=== PATIENT | female | born 1980 | race Caucasian/White ===

== ENCOUNTER 2019-06-12 03:28 | Inpatient (IN) | payer BC, OTHER ==
--- NOTE | 2019-06-12 03:38 | ED ---
HPI Chest Pain - HPI Summary HPI Summary: 38 year old F presenting to [facility] complains of non-radiating mid sternal chest pain described as burning/pulsating rated 7/10 in severity since 03:00 yesterday. 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 PMHx: Meniere's disease. Patient states she usually gets 1-2 episodes of Meniere's each year, an episode lasting 1-2 hours, for which she takes meclizine. Patient states she is having an episode of her Meniere's, reports dizziness since 6 days ago and photophobia. Patient states that 6 weeks ago, she suddenly started feeling some disequilibrium. When she got home after this started, she collapsed to floor, couldn't stand, lost vision for 10-15 minutes. With the help of her mother, patient was able to get to bed. Patient stayed in bed for next several days, needed wheelchair help going to the bathroom. She states she thought this would pass, but ever since, she hasn't been able to see well. Patient states she went to her primary care provider who increased her meclizine dose. She reports problems with vision, balance, coordination, intermittent vomiting. Over last few days, she developed left abdominal pain and chest pain. Patient denies shortness of breath and headache. Symptoms aggravated by nothing. Symptoms alleviated by nothing. 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 Surgical hx: gastric bypass in 2003. Does not get menstrual periods because she has IUD. - History of Current Complaint Hx Obtained From: Patient Onset/Duration: Started Hours Ago, Still Present Timing: Constant Current Severity: Moderate Pain Intensity: 7 Pain Scale Used: 0-10 Numeric Chest Pain Location: Mid Sternal Character: Burning, Other: - pulsating Aggravating Factor(s): Nothing Alleviating Factor(s): Nothing Associated Signs and Symptoms: Positive: Negative - shortness of breath, headache, Other: - nausea, hematemesis, dizziness, photophobia, lower abdominal pain, pain in her LLQ - Allergy/Home Medications Allergies/Adverse Reactions: Allergies Allergy/AdvReac Type Severity Reaction Status Date / Time azithromycin Allergy Hives Verified 06/12/19 03:39 Penicillins Allergy Hives Verified 06/12/19 03:39 sulfamethoxazole Allergy Hives Verified 06/12/19 03:39 [From Bactrim] trimethoprim [From Bactrim] Allergy Hives Verified 06/12/19 03:39 Home Medications: Home Medications Ergocalciferol CAP* [Drisdol CAP*] 1 cap PO SEE INSTRUCTIONS 06/12/19 [History Confirmed 06/12/19] Pantoprazole Sodium 40 mg PO BID 06/12/19 [History Confirmed 06/12/19] PMH/Surg Hx/FS Hx/Imm Hx EENT History: Reports: Other - Meniere's disease - Surgical History Surgery Procedure, Year, and Place: LUE repair. breast reduction with implant. WPW with ablation. gastric bypass 2003 Infectious Disease History: Denies: Traveled Outside the [place] in Last 30 Days - Family History Known Family History: Positive: Cardiac Disease - brother had KS, Other - mother had stroke - Social History Alcohol Use: None Substance Use Type: Reports: None Smoking Status (MU): Never Smoked Tobacco Review of Systems Positive: Photophobia Positive: Chest Pain Negative: Shortness Of Breath Positive: Abdominal Pain, Vomiting, Nausea, Other - hematemesis Neurological: Other - Dizziness, problems with balance and coordination Negative: Headache All Other Systems Reviewed And Are Negative: Yes Physical Exam - Summary Physical Exam Summary: Appearance: Well-appearing, Well-nourished, lying in bed comfortably Skin: Warm, dry, no obvious rash Eyes: sclera anicteric, no conjunctival pallor ENT: mucous membranes moist, pharynx appears normal Neck: Supple, nontender Respiratory: Clear to auscultation, no signs of respiratory distress Cardiovascular: Normal S1, S2. No murmurs. Normal distal pulses in tibial and radial bilaterally. Abdomen: Soft, nontender, normal active bowel sounds present Musculoskeletal: Normal, Strength/ROM Intact Neurological: A&Ox3, awake and alert, mentation is normal, speech is fluent and appropriate, Level of consciousness nml. The patient is alert and oriented. Cranial nerves are grossly intact. Gaze is conjugate and there is pronounced nystagmus on lateral gaze in both directions which perhaps has a rotational component. The patient is able to read by ID badge at 1 ft distance. There are no gross sensory abnormalities to light touch. There is mild truncal and marked fine motor ataxia on finger to nose testing. Gait is not tested as pt was unable to get beyond a sitting position. Psychiatric: affect is normal, does not appear anxious or depressed Triage Information Reviewed: Yes Vital Signs Reviewed: Yes Procedures - Sedation Patient Received Moderate/Deep Sedation with Procedure: No Diagnostics - Laboratory Result Diagrams: 06/13/19 05:39 06/15/19 04:02 Lab Statement: Any lab studies that have been ordered have been reviewed, and results considered in the medical decision making process. - Radiology CXR Radiology Interpretation Completed By: ED Physician Summary of Radiographic Findings: No acute process. Pending official report - CT Brain CT Interpretation Completed By: Radiologist Summary of CT Findings: No acute intracranial hemorrhage or infarct. ED physician has reviewed this report. Abd/Pel CT Interpretation Completed By: Radiologist Summary of CT Findings: 1. Status post gastric surgery. 2. IUD [address]. ED physician has reviewed this report. - EKG 0331 Cardiac Rate: NL - 87 BPM EKG Rhythm: Sinus Rhythm Summary of EKG Findings: NSR at 87 BPM, P waves, QRS complex, and T waves are within normal limits, T waves and intervals are normal, no ischemic changes. This is a normal EKG. Chest Pain Course/Dx - Course Course Of Treatment: 38 year old F complains of non-radiating mid sternal chest pain described as burning/pulsating rated 7/10 in severity since 15:00 yesterday. 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 Patient states she is having an episode of her Meniere's, reports dizziness since 6 days ago and photophobia. 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 Bloodwork results with no significant abnormalities except for WBC 3.4, Hgb 11.5, RDW 19, MPV 7.0, INR 1.19, potassium 3.3, CO2 18, BUN/creatinine 7.5, glucose 124, total bilirubin 2.50, AST 203, ALT 734, alkaline phosphatase 173. An EKG shows NSR at 87 BPM, P waves , QRS complex, and T waves are within normal limits, T waves and intervals are normal, no ischemic changes. This is a normal EKG. CT Brain shows, per radiologist: No acute intracranial hemorrhage or infarct. CT Abd/Pel shows, per radiologist: 1. Status post gastric surgery. 2. IUD in place. CXR shows No acute process. In the ED course, the patient was given normal saline fluids 1 L IV, Compazine 10 mg IV, and multi vitamins. Spoke with Dr. Perdomo, hospitalist, who agrees to admit patient. - Diagnoses Provider Diagnoses: Ataxia - Provider Notifications Discussed Care Of Patient With: Rowena Perdomo Time Discussed With Above Provider: 05:57 Instructed by Provider To: Other - Dr. Perdomo, hospitalist, agrees to admit patient. Discharge ED - Sign-Out/Discharge Documenting (check all that apply): Patient Departure - Discharge Plan Condition: Fair Disposition: ADMITTED TO [facility] - Billing Disposition and Condition Condition: FAIR Disposition: Admitted to [facility] - Attestation Statements Document Initiated by Scribe: Yes Documenting Scribe: Mita Salcedo Provider For Whom Shaquille is Documenting (Include Credential): Mata Mendez MD Scribe Attestation: Mita Mcbride, scribed for Mata Mendez MD on 06/15/19 at 1928. Scribe Documentation Reviewed: Yes Provider Attestation: The documentation as recorded by the Mita nicolas accurately reflects the service I personally performed and the decisions made by Mata bradford MD Status of Scribe Document: Viewed
[2019-06-12] MEDS ORDERED: Thiamine IV 100 MG, Folic Acid IV* 1 MG, Multiple Vitamin IV ADULT* 10 ML in NS 0.9% 10... IV ONE (04:23)
[2019-06-12] MEDS ORDERED: PROCHLORPERAZINE INJ 5 MG/ML 2 ML VIAL IV PRN (04:24)
[2019-06-12] MEDS ORDERED: NS 0.9% 1000 ML** 2,000 ML IV ONE (04:25)
[2019-06-12 05:09] LABS: INR 1.19 (0.82-1.09)
[2019-06-12 05:19] LABS: AST 203 U/L (13-39); Albumin 3.8 g/dL (3.2-5.2); Albumin/Globulin Ratio 1.1 (1-3); Alkaline Phosphatase 173 U/L (34-104); Anion Gap 9 mmol/L (2-11); BUN/Creatinine Ratio 7.5 (8-20); Blood Urea Nitrogen 7 mg/dL (6-24); CO2 Carbon Dioxide 18 mmol/L (22-32); Calcium 9.4 mg/dL (8.6-10.3); Chloride 111 mmol/L (101-111); EGFR African American 81.2 (>60); EGFR Non-African American 67.1 (>60); Globulin 3.5 g/dL (2-4); Glucose 124 mg/dL (70-100); Potassium 3.3 mmol/L (3.5-5.0); Sodium 138 mmol/L (135-145); Total Protein 7.3 g/dL (6.4-8.9)
[2019-06-12] MEDS ORDERED: Iohexol 300* (CONTRAST) 10 ML SDV IV ONE (05:28)
[2019-06-12 05:39] LABS: ABS Lymphocytes 1.1 10^3/ul (1.0-4.8); ABS Monocytes 0.3 10^3/ul (0-0.8); Eosinophil % 0.9 %; Hematocrit 35 % (35-47); Hemoglobin 11.5 g/dL (12.0-16.0); Lymphocyte % 30.9 %; Mean Corpuscular HGB Conc 33 g/dL (31-36); Mean Corpuscular Hemoglobin 31 pg (27-31); Mean Corpuscular Volume 95 fL (80-97); Nucleated Red Blood Cells % 0.1; Platelet Count 251 10^3/uL (150-450); Red Blood Count 3.72 10^6 /uL (3.70-4.87); Red Cell Distribution Width 19 % (10-15); White Blood Count 3.4 10^3/uL (3.5-10.8)
[2019-06-12 05:50] LABS: ALT 734 U/L (7-52)
[2019-06-12 06:42] LABS: Urine Appearance Clear; Urine Bilirubin Negative (Negative); Urine Blood Negative (Negative); Urine Color Yellow; Urine Glucose Negative (Negative); Urine Ketones Negative (Negative); Urine Nitrite Negative (Negative); Urine Protein Negative (Negative); Urine Urobilinogen Negative (Negative)
[2019-06-12 06:57] LABS: Alcohol < 10 mg/dL (<10)
[2019-06-12 07:04] LABS: C Reactive Protein 5.02 mg/L (<8.01)
[2019-06-12 09:06] LABS: Erythrocyte Sed Rate 16 mm/Hr (0-19)
[2019-06-12] MEDS ORDERED: Gadoteridol* (CONTRAST) 279.3 MG/ML 10 ML IV ONE (10:08)
[2019-06-12 10:27] LABS: Magnesium 2.3 mg/dL (1.9-2.7)
[2019-06-12 10:40] LABS: Acetaminophen < 15 mcg/mL
[2019-06-12] MEDS ORDERED: Acetaminophen TAB* 325 MG PO PRN (10:43)
[2019-06-12] MEDS ORDERED: Ondansetron INJ* 2 MG/ML VIAL IV PRN (10:43)
[2019-06-12] MEDS ORDERED: Potassium Chloride* LIQUID 20 MEQ/15 ML UDC PO ONE (10:49)
[2019-06-12 11:27] LABS: Hepatitis B Surface Antigen Nonreactive (Nonreactive)
[2019-06-12 11:45] LABS: Hepatitis C Antibody Negative (Negative)
[2019-06-12] MEDS: NS 0.9% 1000 ML** 1,000 ML IV SCH (14:15)
--- NOTE | 2019-06-12 14:21 | HP ---
AMENDED REPORT NOW INCLUDES DESIGNATED COSIGNER ADMISSION HISTORY AND PHYSICAL: DATE OF ADMISSION: 06/12/19 PRIMARY CARE PHYSICIAN: Dr. Jared Lopez PROVIDER: Jenny Davalos NP ATTENDING PHYSICIAN: Dr. Greenfield * (DICTATED BY JENNY DAVALOS NP) OTHER PROVIDER: Include Dr. Lamar. CHIEF COMPLAINT: Fall and loss of speech, vision and sight. HISTORY OF PRESENT ILLNESS: This is a 38-year-old female with a past medical history significant for headaches, migraines, bipolar, Meniere's disease and Adriana- Parkinson-White, who since starting about 7-1/2 days ago experienced some intermittent palpitations with no accompanying shortness of breath or radiating pain. Six days ago, she was sent home from work and stating because she felt unwell. When she got home, changed into her pajamas, she promptly fell and lost her speech, vision, and slight which is typical for when she has her "Meniere's attacks." Her normal Meniere's episodes last about half a day, this has been lasting for the past 6 days. She feels that she is thinking unclearly and has been unable to walk steadily and has been using a wheelchair to get around at home, to get to the bathroom. Starting about 2 days ago, she reported intermittent burning retrosternal pain and nausea. Nothing made it better, nothing made it worse and this morning, she had had a prolonged episode of dry heaving that resulted at the end with a very small amount of bright red blood in her vomit and had been brining up just mucus. Denies any recent illness or drinking. She has been taking her medications as she is supposed to other than her Wellbutrin, which she occasionally forgets once every couple of weeks. The hospitalist were asked to evaluate the patient for admission. Here in the ED, the patient obtained a brain MRI, brain CT, chest x-ray, and abdominal and pelvis CT scan. The patient is drowsy though arousable to voice. Speech somewhat slurred, unable to keep eyes open during conversation, is alert and oriented x4. PAST MEDICAL HISTORY: Includes: 1. Meniere's disease. 2. Duybe-Murgycrul-Sqgxi with ablation. 3. ADD. 4. Depression. 5. Anxiety. 6. Headaches. 7. Migraines. 8. Bipolar. 9. GERD. PAST SURGICAL HISTORY: Includes: 1. Breast reduction with implants bilaterally. 2. Gastric bypass in 2003. 3. Left humerus fracture with ORIF. HOME MEDICATIONS: 1. Clonazepam 1 mg p.o. daily. 2. Promethazine 25 mg p.o. q.6 hours p.r.n. 3. Ergocalciferol 50,000 units weekly. 4. Dextroamphetamine 10 mg p.o. q.i.d. 5. Bupropion 150 mg p.o. daily. 6. Pantoprazole 40 mg p.o. b.i.d. 7. Lamotrigine 200 mg p.o. b.i.d. 8. Meclizine 25 mg p.o. b.i.d. ALLERGIES: Include AZITHROMYCIN, PENICILLIN, BACTRIM, LEVAQUIN, TOPAMAX, and ERYTHROMYCIN. FAMILY HISTORY: Brother had an NM. Mother had TIA and hypothyroidism. SOCIAL HISTORY: Denies any tobacco use or alcohol use or any recreational substances. 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 Is not , has no children and lives on the top floor of her grandmother's house. Her grandmother lives in the bottom level. REVIEW OF SYSTEMS: Negative for any fevers, anorexia, chest pain, edema. No coughing. No issues with bladder function. Is positive for nausea, vomiting, constipation, bilateral leg weakness. PHYSICAL EXAMINATION VITAL SIGNS: Temperature is 97.6 Fahrenheit, 85 pulse, 15 resp, 98% oxygen on room air, 120/73 blood pressure. HEENT: Conjunctivae pink and moist. Pupils equal, round, and reactive to light. Extraocular muscles intact. ENT: Smile symmetrical. Tongue midline. Oropharynx clear. Mucous membranes moist. LYMPHATICS: No cervical lymphadenopathy noted. RESPIRATORY: No accessory muscle use. Lung sounds diminished throughout bilaterally on room air. CARDIAC: S1, S2. Heart rate regular. No murmurs, rubs or gallops appreciated. 2+ positive pedal pulses. ABDOMEN: Soft. It is tender to the right upper quadrant, reporting crampy pain there and a dull ache to the left lower quadrant with hypoactive bowel sounds x4. MUSCULOSKELETAL: No clubbing or cyanosis noted. Able to move all extremities. NEUROLOGIC: Able to move all extremities. Sensation intact to light touch. No focal deficits appreciated. Hand impregnator electrolytic capacitors are equal. PSYCHIATRIC: Alert and oriented x3 though flatter affect noted. SKIN: No rashes or open areas appreciated. LAB DATA: Potassium 3.3, carbon dioxide 18, BUN and creatinine ratio 7.5, glucose 124, lactic acid 1.9, total bilirubin 2.50. AST 203, ALT 734, alkaline phosphatase is 173. Ammonia level 124. Vitamin B12 is over 1450. INR 1.19. White blood cell count 3.4, hemoglobin 11.5, RDW is 19. Tylenol toxicology under 15. Serum alcohol under 10. DIAGNOSTICS: Chest x-ray showed no acute cardiopulmonary process. Abdomen and pelvis CT showed that she is status post gastric surgery with a IUD in place. Liver, gallbladder, and pancreas unremarkable. No remarkable findings overall. Brain CT had no acute intracranial hemorrhage or infarct. EKG showed sinus rhythm. ASSESSMENT AND PLAN: My impression is that this is a 38-year-old female with a past medical history that is significant for headaches, Meniere's, bipolar, ADD , and Ktvnu-Zhyxnopkf-Vrttr who presented to emergency room on 06/12/19 for hepatic encephalopathy likely due to elevated Lamictal levels. Dr. Villarreal consulted. My plan is: 1. Hepatic encephalopathy. [place] to be likely due to excess Lamictal. Denies drinking or recent illness. Clear liquids until more alert. CBC and CMP in the a.m. GI spoke with Dr. Villarreal who felt this was likely due to excess lamictal. Tylenol and alcohol toxicology negative. Hepatitis panel negative. Awaiting results of Lamictal level. Lactulose 30 mL q.i.d to lower ammonia levels. Normal saline at 75ml/hr. Spoke with Dr. Paz and after consulting with patient he felt that she was suffering from a conversion disorder on top of a metabolic disturbance because her symptoms seem to occur when from her boyfriend. Dr. Longoria consulted, he feels she would benefit from an admission to the [facility] once medically stable. 2. Hypokalemia. 20 mEq of potassium x1. 3. Depression and anxiety. Continue bupropion. We will hold clonazepam. 4. Bipolar. Continue Lamictal. 5. Gastroesophageal reflux disease. Continue pantoprazole. 6. Code status is full code. 7. Deep venous thrombosis prophylaxis: SCDs. CONDITION: Guarded. DISPOSITION: Admit OBV. TIME SPENT: Time spent on the patient is about 60 minutes with more than half of it spent face to face. Case reviewed by my attending and they agree with plan of care. JENNY DAVALOS, HOOD FITTER [id number]/CPS #: [id number]
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
[2019-06-12 19:07] LABS: Albumin 3.4 g/dL (3.2-5.2); Albumin/Globulin Ratio 1.1 (1-3); BUN/Creatinine Ratio 4.5 (8-20); Calcium 8.3 mg/dL (8.6-10.3); EGFR African American 86.6 (>60); EGFR Non-African American 71.5 (>60); Potassium 3.4 mmol/L (3.5-5.0); Total Bilirubin 1.8 mg/dL (0.2-1.0); Total Protein 6.4 g/dL (6.4-8.9)
--- NOTE | 2019-06-12 20:20 | CONS ---
GASTROENTEROLOGY CONSULT: DATE OF CONSULT: 06/12/19 CONSULTING PHYSICIANS: Dr. Aleja Greenfield, Dr. Jared Lopez. REASON FOR CONSULTATION: Elevated liver function test in a woman with a history of anxiety, depression, bipolar disorder, on numerous meds, but also complaining of abdominal pain. HISTORY OF PRESENT ILLNESS: She was interviewed with her mother, although the history was confusing and rambling and poorly focused. The patient said that she has been having problems like this for a couple of years. Her mother said that she has been concerned about her and staying with her the last 6 days. Those differences were never really reconciled. The ER notes show she came in complaining of chest pain and indeed the patient points in the lower substernal area and says there was pain that radiated under the left breast. It did not go to the neck, shoulders, or back. There was some dry heaving. She blamed it all on constipation. Today in the hospital, she has had 2 large bowel movements and pronounces that things are better and she actually wanted to eat. In the emergency room, her mental status seemed foggy and off. She has been seen by Neurology, who notes inconsistencies in the exam, but certainly is a longstanding of anxiety. Other symptoms have been ascribed to Meniere disease.which neurology doubts. The final judgment on that is unclear. She does take Lamictal, started possibly 10 years ago by a psychiatrist in [place]. Bupropion was started 10 years ago. Clonazepam started she believes 1 year ago. Her mother supports these intervals. Phenergan she takes exceedingly rarely. In the emergency room, it was noted that her white count was low at 3.4; hemoglobin 11.5, slightly lower than her baseline of 12.2; and LFTs definitely changed, bilirubin 2.5, ALT 734, alkaline phosphatase 174, and ammonia 124. Acute hepatitis panel was negative. She denies taking acetaminophen at home, then switches to say she takes one very rarely. She was taking lots of Advil for various aches and pains, but says that some of her "enzymes were off" and she was advised by Dr. Lopez' nurse practitioner to stop taking the Advil. Those tests were done at [facility]. The labs available here do show a completely normal set of transaminases for values April 2016 through December 2018, though the alkaline phosphatase has been slightly up at times, 149 in April 2016 and 117 in October 2018 with 2 other values normal. PAST MEDICAL HISTORY: 1. Obesity. 2. Bipolar disorder. 3. Anxiety. 4. Depression. 5. Kiuwh-Vajskxvef-Kbwqw - no cardiac issues since ablation many years ago. 6. GERD - on longstanding PPI. 7. Gastric bypass - 2003. 8. Anemia - mild iron deficiency. MEDICATIONS: See history of present illness. FAMILY HISTORY: No history of liver disease. SOCIAL HISTORY: She lives down the street from her mother. 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 She denies alcohol abuse. REVIEW OF SYSTEMS: She denies any history of palpitations, syncope, exertional chest pain, hemoptysis, TB, pneumonia. There is no history of rash, fever, or itching. PHYSICAL EXAM: She is an obese woman, bright and interactive. She is a vague historian. HEENT exam is unremarkable. There is no overt icterus. She is afebrile. Blood pressure 132/72. Her skin is normal. She has no adenopathy. Her lungs are clear. Heart sounds are regular. Breast and pelvic exams deferred. The abdomen is obese, soft and nontender. There are no masses. The exam is limited. Rectal is deferred. Extremities show no edema. DIAGNOSTIC STUDIES/LAB DATA: CT scan - normal liver and biliary tree. IMPRESSION: A woman with anxiety, depression, and other psychiatric issues, who presents with a mixed picture of some chest pain, abdominal pain, constipation, and then on labs, leukopenia and elevated LFTs. Initially it seemed possible she might have drug-induced hepatotoxicity, but a fairly complete history supported by her mother who lives close by her does not reveal any new agents nor any particular tendency it seems for taking supplements. The patient's depression does not appear to be particularly out of control, and there is not a sense that she would have had an impetuous ingestion. The history of chest pain is intriguing and it is possible that a small gallstone could have transited contributing to a picture biochemically such as this. That possibility, however, would not explain the history obtained of having liver enzymes cause her primary office to make suggestions over the last few months. For the moment, withdrawing some of her medications and assessing her situation with serial labs seem most prudent. Certainly bupropion and clonazepam would be considered low risk for hepatotoxicity. [id number]/CPS #: [id number] [facility]
[2019-06-12] MEDS: Pantoprazole TAB * 40 MG TAB PO SCH (20:34)
[2019-06-12] MEDS: Meclizine TAB* 12.5 MG PO SCH (20:34)
[2019-06-12 20:58] LABS: INR 1.17 (0.82-1.09)
[2019-06-12] MEDS ORDERED: lamoTRIgine TAB(*) 100 MG PO SCH (21:00)
[2019-06-13] MEDS: NS 0.9% 1000 ML** 1,000 ML IV SCH (05:07)
[2019-06-13 05:52] LABS: ABS Basophils 0.1 10^3/ul (0-0.2); ABS Eosinophils 0.1 10^3/ul (0-0.6); ABS Lymphocytes 2.4 10^3/ul (1.0-4.8); ABS Monocytes 0.4 10^3/ul (0-0.8); ABS Neutrophils 2.1 10^3/ul (1.5-7.7); Eosinophil % 2.3 %; Hematocrit 31 % (35-47); Hemoglobin 10.2 g/dL (12.0-16.0); Lymphocyte % 47.7 %; Mean Corpuscular HGB Conc 32 g/dL (31-36); Mean Corpuscular Hemoglobin 31 pg (27-31); Mean Corpuscular Volume 96 fL (80-97); Mean Platelet Volume 7.3 fL (7.4-10.4); Nucleated Red Blood Cells % 0.2; Platelet Count 224 10^3/uL (150-450); Red Blood Count 3.28 10^6 /uL (3.70-4.87); Red Cell Distribution Width 19 % (10-15); White Blood Count 5.1 10^3/uL (3.5-10.8)
[2019-06-13 06:06] LABS: Albumin 2.9 g/dL (3.2-5.2); Albumin/Globulin Ratio 1.1 (1-3); Calcium 7.7 mg/dL (8.6-10.3); EGFR African American 104.1 (>60); Globulin 2.7 g/dL (2-4); Total Bilirubin 1.7 mg/dL (0.2-1.0); Total Protein 5.6 g/dL (6.4-8.9)
[2019-06-13 06:38] LABS: TSH (Thyroid Stimulating Horm) 2.67 mcIU/mL (0.34-5.60)
[2019-06-13 06:40] LABS: Free T4 0.95 ng/dL (0.61-1.12)
[2019-06-13] MEDS ORDERED: Potassium Chlor TAB* 20 MEQ TAB.ER PO ONE (07:56)
[2019-06-13] MEDS ORDERED: buPROPion SR TAB.SR* 150 MG PO SCH (09:00)
[2019-06-13] MEDS: Meclizine TAB* 12.5 MG PO SCH ×2 (09:57→20:45)
[2019-06-13] MEDS: Pantoprazole TAB * 40 MG TAB PO SCH ×2 (09:57→20:45)
--- NOTE | 2019-06-13 10:45 | PN ---
Subjective Date of Service: 06/13/19 Length of Stay: 1 Days Neurology is following for the reported history of Menier's disease and recent episodes of "drop attacks." Interval History: She feels well today. She denied any vertigo, headaches, or drop attacks, despite an even lower potassium level today. She denied any visual disturbance. She still has mild ptosis on the left. She denied fatigue or swallowing impairment. In regards to missing any of her mood stabilizing medications, she has not had any recent medication interruption. She has been adherent to both lamotrigine and Wellbutrin. She recalls missing a few doses of lamotrigine last year when she ran out. Once she restarted back on the full dose, she developed lightheadedness and visual disturbance. She denied any tremors or feeling of confusion. Labs: AST: 203 -> 105 ALT: 734 -> 442 Ammonia: 124 ->83 Review of Systems: Denied CP, SOB, or palpitations. Objective Active Medications: Acetaminophen (Tylenol Tab*) 650 mg PO Q4H PRN PRN Reason: MILD PAIN or TEMP > 100.4 Sodium Chloride (Ns 0.9% 1000 Ml) 1,000 mls @ 75 mls/hr IV PER RATE [facility] Last Admin: 06/13/19 05:07 Dose: 75 mls/hr Lactulose (Lactulose*) 30 ml PO QID [facility] Last Admin: 06/13/19 09:57 Dose: 30 ml Meclizine HCl (Antivert Tab*) 25 mg PO BID [facility] Last Admin: 06/13/19 09:57 Dose: 25 mg Ondansetron HCl (Zofran Inj*) 4 mg IV Q4H PRN PRN Reason: NAUSEA/VOMITING Pantoprazole Sodium (Protonix Tab*) 40 mg PO BID [facility] Last Admin: 06/13/19 09:57 Dose: 40 mg Prochlorperazine Edisylate (Compazine Inj*) 10 mg IV Q6H PRN PRN Reason: NAUSEA/VOMITING Last Admin: 06/12/19 06:13 Dose: 10 mg Vital Signs 06/12/19 06/12/19 06/12/19 10:59 11:00 11:21 Temperature Pulse Rate 81 84 Respiratory 19 Rate Blood Pressure (mmHg) O2 Sat by Pulse 99 99 Oximetry 06/12/19 06/12/1906/12/19 11:26 11:43 11:48 Temperature 97.9 F 97.9 F Pulse Rate 85 85 Respiratory 22 22 Rate Blood Pressure 129/76 129/76 (mmHg) O2 Sat by Pulse 100 100 Oximetry 06/12/19 06/12/19 06/12/19 12:30 15:15 19:15 Temperature 97.7 F 98.2 F 97.9 F Pulse Rate 86 96 92 Respiratory 19 19 24 Rate Blood Pressure 115/65 132/72 126/78 (mmHg) O2 Sat by Pulse 100 100 100 Oximetry 06/13/19 06/13/19 06/13/19 00:16 03:05 08:00 Temperature 98.3 F 97.9 F Pulse Rate 87 83 Respiratory 16 16 17 Rate Blood Pressure 109/71 118/68 (mmHg) O2 Sat by Pulse 97 99 Oximetry 06/13/19 08:53 Temperature 98.1 F Pulse Rate 79 Respiratory 17 Rate Blood Pressure 123/71 (mmHg) O2 Sat by Pulse 98 Oximetry Intake and Output Last 24 Hours 06/11/19 06/12/19 06/13/19 06/14/19 06:59 06:59 06:59 06:59 Intake Total 6441 Output Total 0 Balance 6441 Weight 192 lb 200 lb Intake: IV Fluids 3441 NS 441 Oral 3000 Output: Urine 0 Other: # Voids 1 Oxygen Devices in Use Now: None Neurology Exam: General: Well nourished, well developed, overweight female in no acute distress HEENT: Normocephelic/atraumatic, sclera anicteric, mucous membranes moist Neck: Supple Extremities: No clubbing, cyanosis, or edema Neurological Findings: Awake, alert, and oriented to person, place, and time. Speech: fluent without dysarthria, repetition intact Cranial Nerve: PERRL, EOM intact, VFF, no nystagmus, face symmetric bilaterally. Mild ptosis on the left (chronic). Result Diagrams: 06/13/19 05:39 06/13/19 05:39 Assessment/Plan Ms. Radha Mccoy is a 38-year-old female with reported history of ADHD, bipolar disorder, and Menier's disease who presented with increase episodes of "drop attacks," inability to ambulate for a few minutes, and vertigo. The symptoms have resolved. She walked without any issues yesterday. She feels well today with no complaints. She was incidentally found to have transaminitis and hyperammonemia. 1. Drop attacks associated with vertigo- - I suspect her episodic vertigo and headaches are related to vestibular migraine. I don't think she has Menier's disease. - The reported drop attacks in the setting of acute stressors is likely functional. Hypokalemia periodic paralysis is unlikely the diagnosis here since she is asymptomatic today in spite of a lower potassium level compared to yesterday. 2. Transaminitis and hyperammonemia- most likely drug induced. Please note that if lamotrigine is held for more than 3 days, we would have to retitrate her back up to a full therapeutic dose. I would recommend restarting lamotrigine to 200 mg nightly. Defer further recommendations to psychiatry. Liver function test should be done more frequent as an outpatient while slowly restarting some of her home medications. She is asymptomatic from the hyperammonemia standpoint. Depakote would not be a good choice in the future due to the recent history of hepatotoxicity. I will sign off but please contact me for any questions or concerns.
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
--- NOTE | 2019-06-13 15:53 | PN ---
Subjective Date of Service: 06/13/19 Interval History: Patient seen and examined. States she is feeling better overall. States she is having left sided abdominal pain, but none in RUQ. Denies fever or chills. No further events noted. Objective Active Medications: Acetaminophen (Tylenol Tab*) 650 mg PO Q4H PRN PRN Reason: MILD PAIN or TEMP > 100.4 Sodium Chloride (Ns 0.9% 1000 Ml) 1,000 mls @ 75 mls/hr IV PER RATE [facility] Last Admin: 06/13/19 05:07 Dose: 75 mls/hr Lactulose (Lactulose*) 30 ml PO QID [facility] Last Admin: 06/13/19 13:19 Dose: 30 ml Meclizine HCl (Antivert Tab*) 25 mg PO BID [facility] Last Admin: 06/13/19 09:57 Dose: 25 mg Ondansetron HCl (Zofran Inj*) 4 mg IV Q4H PRN PRN Reason: NAUSEA/VOMITING Pantoprazole Sodium (Protonix Tab*) 40 mg PO BID [facility] Last Admin: 06/13/19 09:57 Dose: 40 mg Prochlorperazine Edisylate (Compazine Inj*) 10 mg IV Q6H PRN PRN Reason: NAUSEA/VOMITING Last Admin: 06/12/19 06:13 Dose: 10 mg Vital Signs - 8 hr 06/13/19 06/13/19 06/13/19 08:00 08:53 12:07 Temperature 98.1 F 97.1 F Pulse Rate 79 86 Respiratory 17 17 16 Rate Blood Pressure 123/71 117/80 (mmHg) O2 Sat by Pulse 98 100 Oximetry Oxygen Devices in Use Now: None Appearance: alert, NAD Eyes: PERRLA Ears/Nose/Mouth/Throat: Mucous Membranes Moist Neck: NL Appearance and Movements; NL JVP, Trachea Midline Respiratory: Symmetrical Chest Expansion and Respiratory Effort, Clear to Auscultation Cardiovascular: NL Sounds; No Murmurs; No JVD, RRR Abdominal: NL Sounds; No Tenderness; No Distention Extremities: No Clubbing, Cyanosis Skin: No Rash or Ulcers Neurological: Alert and Oriented x 3, NL Muscle Strength and Tone Nutrition: Taking PO's Result Diagrams: 06/13/19 05:39 06/13/19 05:39 Assess/Plan/Problems-Billing Assessment: This is a 38 year old female patient that presented to the ED with complaints of retrosternal pain, vomiting, encephalopathy and elevated liver enzymes. - Patient Problems (1) Toxic encephalopathy Code(s): G92 - TOXIC ENCEPHALOPATHY SNOMED Code(s): 11923627 Comment: - Improved, unclear, but most likely source was medication related (adderall with wellbutrin, and lamotragine?) - Ammonia levels normal - Mentation back to baseline (2) Transaminitis Code(s): R74.0 - NONSPEC ELEV OF LEVELS OF TRANSAMNS & LACTIC ACID DEHYDRGNSE SNOMED Code(s): 981488518 Comment: - GI consult appreciated - US liver with [place] sign but no acute ihsan, liver normal, hepatitis panel negative, may be medication related - LFTs trending down, recheck again in AM for resolution - Restart diet (3) Mood disorder Code(s): F39 - UNSPECIFIED MOOD [AFFECTIVE] DISORDER SNOMED Code(s): 97321154 Comment: - Patient reports hx of Meniere's disease, but symptoms do not correlate, neurology consultation appreciated, no additional recommendations at this time, likely a component of conversion disorder given patient's report of trauma - Psychiatry consult appreciated, recommends stopping adderall, continue lamotragine and wellbutrin and monitor labs in AM - SW consult placed, needs community follow up Status and Disposition: Obs, DC in AM if labs improved.
[2019-06-13] MEDS: buPROPion SR TAB.SR* 150 MG PO SCH (20:45)
[2019-06-13] MEDS: lamoTRIgine TAB(*) 100 MG PO SCH (20:45)
[2019-06-14 07:14] LABS: Albumin 2.9 g/dL (3.2-5.2); Calcium 8.1 mg/dL (8.6-10.3); Potassium 3.2 mmol/L (3.5-5.0); Total Bilirubin 1.2 mg/dL (0.2-1.0)
[2019-06-14 07:20] LABS: Albumin/Globulin Ratio 0.9 (1-3); BUN/Creatinine Ratio 8.2 (8-20); EGFR African American 107.4 (>60); EGFR Non-African American 88.8 (>60); Globulin 3.2 g/dL (2-4); Total Protein 6.1 g/dL (6.4-8.9)
[2019-06-14] MEDS: buPROPion SR TAB.SR* 150 MG PO SCH ×2 (07:50→20:09)
[2019-06-14] MEDS: Meclizine TAB* 12.5 MG PO SCH ×2 (07:50→20:09)
[2019-06-14] MEDS: Pantoprazole TAB * 40 MG TAB PO SCH ×2 (07:50→20:10)
--- NOTE | 2019-06-14 19:10 | PN ---
Subjective Date of Service: 06/14/19 Interval History: Pt is feeling fine. She states she is still having dizziness upon standing. After about 10 min of standing she states the dizziness improves. After mentioning that possibly she had a gallstone that passed she tells me that she has been having LUQ pain. Objective Active Medications: Acetaminophen (Tylenol Tab*) 650 mg PO Q4H PRN PRN Reason: MILD PAIN or TEMP > 100.4 Last Admin: 06/14/19 09:33 Dose: 650 mg Bupropion HCl (Wellbutrin Sr Tab*) 150 mg PO BID [facility] Last Admin: 06/14/19 07:50 Dose: 150 mg Lamotrigine (Lamictal Tab(*)) 400 mg PO BEDTIME [facility] Last Admin: 06/13/19 20:45 Dose: 400 mg Meclizine HCl (Antivert Tab*) 25 mg PO BID [facility] Last Admin: 06/14/19 07:50 Dose: 25 mg Ondansetron HCl (Zofran Inj*) 4 mg IV Q4H PRN PRN Reason: NAUSEA/VOMITING Pantoprazole Sodium (Protonix Tab*) 40 mg PO BID [facility] Last Admin: 06/14/19 07:50 Dose: 40 mg Prochlorperazine Edisylate (Compazine Inj*) 10 mg IV Q6H PRN PRN Reason: NAUSEA/VOMITING Last Admin: 06/12/19 06:13 Dose: 10 mg Vital Signs - 8 hr 06/14/19 15:48 Temperature 97.6 F Pulse Rate 90 Respiratory 18 Rate Blood Pressure 125/73 (mmHg) O2 Sat by Pulse 100 Oximetry Oxygen Devices in Use Now: None Appearance: Middle aged obese female sitting up in bed, NAD Eyes: No Scleral Icterus Ears/Nose/Mouth/Throat: Mucous Membranes Moist Respiratory: Symmetrical Chest Expansion and Respiratory Effort, Clear to Auscultation Cardiovascular: NL Sounds; No Murmurs; No JVD, RRR, No Edema Abdominal: NL Sounds; No Tenderness; No Distention Extremities: No Clubbing, Cyanosis Skin: No Nodules or Sclerosis Neurological: Alert and Oriented x 3 Result Diagrams: 06/13/19 05:39 06/14/19 05:14 Assess/Plan/Problems-Billing Ms Mccoy is a 38 year old female patient that presented to the ED with complaints of fall, loss of vision and speech and was found to be ataxic and have elevated liver enzymes. - Patient Problems (1) Transaminitis Current Visit: Yes Status: Acute Code(s): R74.0 - NONSPEC ELEV OF LEVELS OF TRANSAMNS & LACTIC ACID DEHYDRGNSE SNOMED Code(s): 178102487 Comment: LFTs continue to trend down. Ammonia still up however. Etiology is unclear. She did tell me she was taking up to 8, 325mg tablets of tylenol/day. ? if she may have passed a small stone as labs are improving. Will recheck tomorrow. (2) Mood disorder Current Visit: Yes Status: Acute Code(s): F39 - UNSPECIFIED MOOD [AFFECTIVE ] DISORDER SNOMED Code(s): 34330964 Comment: Patient reports hx of Meniere's disease, but symptoms do not correlate, neurology consultation appreciated, no additional recommendations at this time. Likely a component of conversion disorder given patient's report of trauma. Continue lamotragine and wellbutrin per psych. Pt has outpatient psych follow up already scheduled. I do question if some of the fog she is describing may be from her hyperammonemia. (3) Toxic encephalopathy Current Visit: Yes Status: Acute Code(s): G92 - TOXIC ENCEPHALOPATHY SNOMED Code(s): 57355216 Comment: Reportedly improved from admission. Ammonia level not completely normalized but better. Will repeat ammonia tomorrow. (4) DVT prophylaxis Current Visit: Yes Status: Acute Code(s): Z29.9 - ENCOUNTER FOR PROPHYLACTIC MEASURES, UNSPECIFIED SNOMED Code(s): 051904461 Comment: ambulation (5) Full code status Current Visit: Yes Status: Acute Code(s): Z78.9 - OTHER SPECIFIED HEALTH STATUS SNOMED Code(s): 292864169
[2019-06-14] MEDS: lamoTRIgine TAB(*) 100 MG PO SCH (20:09)
[2019-06-14] MEDS ORDERED: Potassium Chlor TAB* 20 MEQ TAB.ER PO ONE ×2 (22:20→23:00)
[2019-06-15] MEDS ORDERED: Potassium Chlor TAB* 20 MEQ TAB.ER PO ONE
[2019-06-15 04:29] LABS: Albumin 2.9 g/dL (3.2-5.2); BUN/Creatinine Ratio 8.1 (8-20); Calcium 7.9 mg/dL (8.6-10.3); EGFR African American 105.7 (>60); EGFR Non-African American 87.4 (>60); Potassium 3.5 mmol/L (3.5-5.0); Total Bilirubin 1.1 mg/dL (0.2-1.0)
[2019-06-15 05:52] LABS: Total Protein 5.9 g/dL (6.4-8.9)
[2019-06-15] MEDS: Pantoprazole TAB * 40 MG TAB PO SCH (07:51)
[2019-06-15] MEDS: Meclizine TAB* 12.5 MG PO SCH (07:51)
[2019-06-15 08:26] VITALS: BP 131/78
[2019-06-15] MEDS ORDERED: buPROPion SR TAB.SR* 150 MG PO SCH (09:00)
[2019-06-15] MEDS ORDERED: clonazePAM TAB(*) 0.5 MG PO ONE (10:34)
--- NOTE | 2019-06-18 03:30 | DS ---
CC: Dr. Lopez * DISCHARGE SUMMARY: DATE OF ADMISSION: 06/12/19 DATE OF DISCHARGE: 06/15/19 PRIMARY CARE PROVIDER: Dr. Lopez. PRINCIPAL DIAGNOSES: 1. Episodes of dizziness and change in vision of unclear etiology versus conversion disorder. 2. Transaminitis secondary to unclear cause. SECONDARY DIAGNOSES: 1. Anxiety. 2. Meniere's disease. 3. History of Gwoui-Hnhyljdef-Ozfqb syndrome with ablation. 4. Attention deficit disorder. 5. Migraines. DISCHARGE MEDICATIONS: 1. Clonazepam 1 mg p.o. q.h.s. 2. Vitamin D 50,000 units p.o. every other week. 3. Bupropion 300 mg p.o. daily. 4. Protonix 40 mg p.o. b.i.d. 5. Lamictal 400 mg p.o. q.h.s. 6. Meclizine 25 mg p.o. b.i.d. p.r.n. dizziness. HOSPITAL COURSE: Ms. Mccoy is a 38-year-old female, who presented to the emergency room on 06/12/19, with complaints of a prolonged episode of dizziness and change in speech and vision. The patient states that she will have intermittent episodes of a flare of her Meniere's disease. She notes when this happens, she becomes dizzy and falls and has changes in her speech and vision. However, this episode lasted 6 days at the time of her presentation to the emergency room which is much longer than normal. The patient was evaluated in the ER with CT scan and brain MRI which were ultimately negative. The patient was seen in consultation by Dr. Paz from Neurology, who felt she likely was having a functional neurologic problem (conversion disorder). It was recommended that the patient follow up with Psychiatry. The patient was seen by Dr. Dudley from Psychiatry. He recommended discontinuing the Adderall and Wellbutrin due to hepatotoxicity; however, the patient's Wellbutrin was not stopped and despite this, her liver enzymes have continued to improve. The Adderall, however, was discontinued. The patient has a followup appointment already scheduled with [facility]. On admission, the patient was also found to have significant transaminitis with her bilirubin being elevated at 2.5. Her AST being elevated at 203 and her ALT elevated at 734. Her alkaline phosphatase was elevated at 173. The patient underwent liver ultrasound, which revealed fatty infiltration of the liver and no cholelithiasis or gallbladder wall thickening. The patient was seen in consultation by Dr. Villarreal. It was thought that perhaps the elevations were secondary to drug-induced hepatotoxicity versus transit of a gallstone. Both of these at the time seemed unlikely as there were no medications that clearly cause hepatotoxicity on her list that was entered into the computer. However, on the day of discharge, the patient's mother provided a list of home medications to me. On that list was acetazolamide which can cause hepatotoxicity. The patient has been off this for 7 days at this point. Her LFTs are improving with holding this medication. Due to the potential for hepatotoxicity, I have recommended that the patient remain off the acetazolamide indefinitely. Additionally, the patient was taking Tylenol 650 mg 4 times daily recently. I have asked her to withhold taking Tylenol until her liver enzymes normalize. The patient has been asked to obtain a CMP and ammonia level on 06/20/19. The patient did have an elevated ammonia level of 124 on admission. She was essentially asymptomatic with this. It is down to 73 on the day of discharge. This is essentially unchanged from how it has been over the last couple of days. PHYSICAL EXAMINATION: On the day of discharge, the patient is awake, alert, and oriented, sitting up in bed, in no acute distress. Cardiac exam revealed normal S1 and S2 with a regular rate and rhythm. Lungs were clear. Abdomen was soft, nontender, nondistended. FOLLOWUP CONCERNS: The patient is being discharged to home today, 06/15/19. ACTIVITY LEVEL: As tolerated. DIET: Regular. CONDITION ON DISCHARGE: Stable. FOLLOWUP: The patient is to follow up with Dr. Lopez in the next 4 to 7 days. She is to have an ammonia level and CMP on 06/20/19. TIME SPENT: Thirty-five minutes was spent discharging this patient. [id number]/[facility] #: [id number] [facility]
== END 2019-06-15 12:58 | disposition home or self-care (01) ==
LOC: ED 03:28 → MEDTELE 10:43 → OBSVTOIN 06-14 11:00
PROVIDERS: ADMIT Hospitalist; ATTEND Hospitalist
DX: K71.9 Toxic liver disease, unspecified (principal); F44.6 Conversion disorder with sensory symptom or deficit; H81.03 Meniere's disease, bilateral; F41.9 Anxiety disorder, unspecified; F98.8 Other specified behavioral and emotional disorders with onset usually occurring in childhood and adolescence; G43.909 Migraine, unspecified, not intractable, without status migrainosus; F31.9 Bipolar disorder, unspecified; K21.9 Gastro-esophageal reflux disease without esophagitis; E87.6 Hypokalemia; Z62.810 Personal history of physical and sexual abuse in childhood; E66.9 Obesity, unspecified; K76.0 Fatty (change of) liver, not elsewhere classified; T50.2X5A Adverse effect of carbonic-anhydrase inhibitors, benzothiadiazides and other diuretics, initial encounter; D50.9 Iron deficiency anemia, unspecified; K59.00 Constipation, unspecified; D72.819 Decreased white blood cell count, unspecified; Z88.0 Allergy status to penicillin; Z88.2 Allergy status to sulfonamides; Z88.1 Allergy status to other antibiotic agents; Z82.49 Family history of ischemic heart disease and other diseases of the circulatory system; Z82.3 Family history of stroke; Z98.84 Bariatric surgery status; Z83.49 Family history of other endocrine, nutritional and metabolic diseases; Z68.35 Body mass index [BMI] 35.0-35.9, adult; Z86.19 Personal history of other infectious and parasitic diseases; Y92.009 Unspecified place in unspecified non-institutional (private) residence as the place of occurrence of the external cause; Y92.9 Unspecified place or not applicable
CPT/HCPCS: 36415; 70450; 70553; 71046; 74177; 76705; 80053; 80074; 80175; 80320; 80329; 81003; 82140; 82607; 83605; 83735; 84425; 84439; 84443; 84484; 85025; 85610; 85652; 86140; 93005; 96360; 96361; 99284; A9270-GY; A9579; G0480; J0780; J2405; J3411; Q9967